=== PATIENT | male | born 1945 | race Caucasian/White ===

== ENCOUNTER 2019-05-09 14:18 | Inpatient (IN) | payer OTHER ==
[~2019-05-09] VITALS: Ht 177.8 cm; Wt 76.7 kg
--- NOTE | ~2019-05-09 | HC ---
[facility] [place] [address] CONSULTATION Name: PAULA ALLEN Room #: 355-P ADM IN M.R.#: [id number] Admission: 05/09/19 Attend Phys: Francis Hartman MD Discharge: Date of : 47 Report #: [id number] THIS REPORT FOR: //name// CC: Francis Hartman DATE OF SERVICE: 05/10/2019 REASON FOR CONSULTATION: Elevated creatinine. 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 The patient is not willing to engage into discussion of his medical care. He tells me that his brain is not working today. His daughter called EMS to be transported to the hospital because he had some increasing swelling and shortness of breath. He denies any urinary symptoms. The patient is known to have history of heart failure, remote history of COPD and hypertension. He denies noncompliance with medications. He carries a diagnosis of chronic kidney disease with a baseline creatinine of around 1.4. He is also known to have diabetes mellitus and is maintained on metformin. The patient's creatinine on presentation was at baseline at 1.5. His chest x-ray was consistent with pulmonary edema. The [facility]. He denies noncompliance with salt restriction. He is known to have a pacemaker in the past. From the renal perspective, he is not really able to tell me the name of his kidney doctor. PAST MEDICAL HISTORY: 1. Coronary artery disease. 2. Status post coronary artery bypass graft. 3. Remote history of left-sided nephrectomy. 4. Diabetes mellitus. 5. Hypertension. 6. Hyperlipidemia. 7. Heart paroxysmal AFib post-pacemaker. MEDICATIONS: 1. Currently, the patient is maintained on Atorvastatin. 2. Metoprolol. 3. Sotalol. 4. Aspirin. 5. Lasix. 6. Potassium. 7. Metformin. PAST MEDICAL HISTORY: Obtained from the medical chart due to the fact that the patient is not able to engage into discussion with his health issues. 1. Chronic obstructive pulmonary disease. [facility] [address] [place] [address] CONSULTATION Name: PAULA ALLEN Room #: 355-P [facility].#: [id number] Admission: 05/09/19 Attend Phys: Francis Hartman MD Discharge: Date of : 47 Report #: [id number] 2. Hypertension. 3. Diabetes mellitus. 4. Status post left nephrectomy. 5. Coronary artery disease. 6. Atrial fibrillation. 7. Status post CABG. 8. Status post AICD. SOCIAL HISTORY: Continues to smoke. No drug or alcohol abuse. ALLERGIES: OPIATE. REVIEW OF SYSTEMS: Unobtainable due to the patient's inability to engage into a discussion of his medical issues. FAMILY HISTORY: Unobtainable. PHYSICAL EXAMINATION: GENERAL: Alert, oriented, in no apparent distress. VITAL SIGNS: Blood pressure is 172/78. HEAD AND NECK: No jugular venous distention. CHEST: Decreased air entry bilaterally with crackles. CARDIOVASCULAR: Regular with no rub. ABDOMEN: Soft, nontender. EXTREMITIES: Lower extremities, +3 edema. LABORATORY DATA: Reviewed. Sodium is 134, potassium is 3.0, BUN is 21, creatinine is 1.5. ASSESSMENT, IMPRESSION AND PLAN: 1. Anasarca. 2. Hypokalemia. 3. Chronic kidney disease. 4. Hypertension. 5. Diabetes mellitus. 6. Coronary artery disease. 7. Continue with the current twice a day, diuretic regimen. 8. Salt restriction. 9. Continue to address his heart issues. 10. Cardiac echo. 11. Daily body weight. 12. Resume his home medications. [facility] [address] [place] [address] CONSULTATION Name: PAULA ALLEN Room #: 355-P [facility] IN ..#: [id number] Admission: 05/09/19 Attend Phys: Francis Hartman MD Discharge: Date of : 47 Report #: [id number] 13. Creatinine seems to be at baseline and it is expected to slightly worsen with diuresis. By: [id number] [id number] Conner Kim MD /nt
[2019-05-09 14:18] VITALS: BP 158/71
[2019-05-09] MEDS ORDERED: METFORMIN HCL500 M3 PO (14:40)
[2019-05-09] MEDS ORDERED: LIPITOR40 MG PO (14:40)
[2019-05-09] MEDS ORDERED: LOPRESSOR50 MG PO (14:40)
[2019-05-09] MEDS ORDERED: SOTALOL 120 MG120 M1 PO (14:41)
[2019-05-09] MEDS ORDERED: LASIX 40 MG TAB40 MG PO (14:41)
[2019-05-09] MEDS ORDERED: PROAIR HFA8.5 GM INH (14:42)
[2019-05-09] MEDS ORDERED: POTASSIUM99 M1 PO (14:42)
[2019-05-09] MEDS ORDERED: NORCO 10-325 T1 EACH PO (14:42)
[2019-05-09] MEDS ORDERED: ASA81BEC PO (14:42)
[2019-05-09 14:56] LABS: HEMATOCRIT 44.4 % (42.0-52.0); HEMOGLOBIN 14.8 gm/dL (14.0-18.0); MCHC 33.3 g/dL (28.0-37.0); PLATELET COUNT 166 thou/uL (150-400); RBC 4.77 mil/uL (4.50-6.00); RDW 14.8 % (10.5-14.5); WBC 6.4 thou/uL (4.0-11.0)
[2019-05-09 15:07] LABS: ANION GAP 6 mmol/L (7-16); BUN 21 mg/dL (7-18); CALCIUM 9.3 mg/dL (8.5-10.1); CHLORIDE 90 mmol/L (98-107); CO2 34 mmol/L (21-32); CREATININE 1.4 mg/dL (0.7-1.3); GLUCOSE 332 mg/dL (74-106); POTASSIUM 3.2 mmol/L (3.5-5.1); SODIUM 130 mmol/L (136-145)
[2019-05-09 15:07] LABS: URINE BILIRUBIN NEGATIVE (Negative); URINE BLOOD NEGATIVE (Negative); URINE CLARITY CLEAR; URINE COLOR YELLOW; URINE GLUCOSE-RANDOM* 3+ (Negative); URINE KETONES NEGATIVE (Negative); URINE LEUKOCYTES-REFLEX NEGATIVE (Negative); URINE NITRITE-REFLEX NEGATIVE (Negative); URINE PROTEIN (DIPSTICK) NEGATIVE (Negative)
[2019-05-09 15:17] LABS: ALBUMIN 3.4 g/dL (3.4-5.0); SGOT 28 U/L (15-37); SGPT 25 U/L (30-65); TOTAL BILIRUBIN 1.1 mg/dL (<0.1-1.0); TROPONIN-I <0.06 ng/mL (<0.06)
[2019-05-09 15:19] LABS: ABSOLUTE NEUTROPHILS 5.2 thou/uL (1.4-8.2); ANISOCYTOSIS 1+
[2019-05-09 16:25] VITALS: BP 173/85
[2019-05-09 16:49] VITALS: BP 172/94
[2019-05-09 17:03] VITALS: BP 166/111
[2019-05-09 19:20] VITALS: BP 135/90
[2019-05-09 23:48] VITALS: BP 133/87
[2019-05-10 00:06] LABS: GLYCOHEMOGLOBIN (HGB A1C) 9.1 % (4.8-5.6)
--- NOTE | 2019-05-10 02:14 | NUR ---
ASSUMED CARE OF PT AT 1900. A&Ox4, COOPERATIVE, OCCASIONALLY SEEMS TO BE A LITTLE CONFUSED. VS STABLE. C/O FEELING SOA. BREATHING TX REQUESTED AND PROVIDED. PT FELT BETTER AND WAS ABLE TO REST. UP X 1 TO BR AND USING URINAL D/T DIURETIC MEDS. PROGRESSING TOWARDS POC GOALS.
[2019-05-10 04:00] VITALS: BP 150/76
[2019-05-10 05:11] LABS: ABSOLUTE NEUTROPHILS 7.2 thou/uL (1.4-8.2); BASOPHILS 0.2 % (0.0-2.0); EOSINOPHILS 0.1 % (0.0-3.0); HEMATOCRIT 46.9 % (42.0-52.0); HEMOGLOBIN 15.4 gm/dL (14.0-18.0); LYMPHOCYTES 4.3 % (24.0-44.0); MCHC 32.8 g/dL (28.0-37.0); MCV 94.5 fL (80.0-100.0); MONOCYTES 1.9 % (1.0-8.0); PLATELET COUNT 187 thou/uL (150-400); POLYS 93.5 % (36.0-66.0); RBC 4.96 mil/uL (4.50-6.00); RDW 14.9 % (10.5-14.5); WBC 7.7 thou/uL (4.0-11.0)
[2019-05-10 05:14] LABS: CREATININE 1.5 mg/dL (0.7-1.3); MAGNESIUM 1.7 mg/dL (1.8-2.4)
--- NOTE | 2019-05-10 08:04 | EKG ---
[address] [address] ELECTROCARDIOGRAM REPORT Name: PAULA ALLEN Room #: 355-P ADM IN M.R.#: [id number] Admission: 05/09/19 Attend Phys: Francis Hartman MD Discharge: Date of : 47 Report #: [id number] THIS REPORT FOR: //name// [facility] ED Test Date: 2019-05-09 Test Time: 15:14:24 Pat Name: PAULA ALLEN Department: Room: 355 Gender: M Tennis Ball Cover Cementer: VALENTINA : 1945 Requested By: Kathy Farris Order Number: [id number] MD: Ayad Shin Measurements Intervals [place] Rate: 86 P: 74 [place]: 209 QRS: 167 QRSD: 174 T: 2 QT: 444 QTc: 531 Interpretive Statements Sinus rhythm Right bundle branch block Compared to ECG 11/08/1998 06:26:00 Intraventricular conduction delay now present nonspecific change in the ST and T-wave segments Electronically Signed On 05-10-2019 8:04:32 HOT IRON WORKER by Ayad Shin [email or web address] <ELECTRONICALLY SIGNED> By: Ayad Shin MD, [facility] 05/10/19 0804 1514 1514 Ayad Shin MD, [facility] /EPI
--- NOTE | 2019-05-10 08:05 | EKG ---
[address] [address] ELECTROCARDIOGRAM REPORT Name: PAULA ALLEN Room #: 355-P ADM IN M.R.#: [id number] Admission: 05/09/19 Attend Phys: Francis Hartman MD Discharge: Date of : 47 Report #: [id number] THIS REPORT FOR: //name// [facility] ED Test Date: 2019-05-09 Test Time: 15:41:48 Pat Name: PAULA ALLEN Department: Room: 355 Gender: M Vice President Quality Assurance: VALENTINA : 1945 Requested By: Kathy Farris Order Number: [id number] MD: Ayad Shin Measurements Intervals [place] Rate: 84 P: 70 [place]: 181 QRS: 168 QRSD: 175 T: 6 QT: 449 QTc: 531 Interpretive Statements Sinus rhythm Right bundle branch block Compared to ECG 11/08/1998 06:26:00 no significant change was found Electronically Signed On 05-10-2019 8:05:19 GAS APPLIANCE REPAIRER by Ayad Shin [email or web address] <ELECTRONICALLY SIGNED> By: Ayad Shin MD, [facility] 05/10/19 0805 1541 1541 Ayad Shin MD, [facility] /EPI
--- NOTE | 2019-05-10 08:15 | EKG ---
[address] [place] [address] ELECTROCARDIOGRAM REPORT Name: PAULA ALLEN Room #: 355-P ADM IN M.R.#: [id number] Admission: 05/09/19 Attend Phys: Francis Hartman MD Discharge: Date of : 47 Report #: [id number] THIS REPORT FOR: //name// [facility] Test Date: 2019-05-10 Test Time: 07:15:56 Pat Name: PAULA ALLEN Department: Room: 355 P Gender: M Natural Sciences Department Chair: Marisa ALLEN : 1945 Requested By: Home Benoit Order Number: [id number] MD: Ayad Shin Measurements Intervals [place] Rate: 93 P: 61 CT: 178 QRS: 177 QRSD: 175 T: 26 QT: 433 QTc: 539 Interpretive Statements Sinus rhythm RBBB and LPFB Premature ventricular complexes Compared to ECG 11/08/1998 06:26:00 Premature ventricular complexes now present Electronically Signed On 05-10-2019 8:15:02 CURING PRESS OPERATOR by Ayad Shin [email or web address] <ELECTRONICALLY SIGNED> By: Ayad Shin MD, [facility] 05/10/19814 4 4 Ayad Shin MD, [facility] /EPI
[2019-05-10 08:51] VITALS: BP 172/78
--- NOTE | 2019-05-10 09:39 | 2DMMODE ---
[facility] [place] [address] 2 D/M-MODE ECHOCARDIOGRAM Name: PAULA ALLEN Room #: 355-P [facility] IN M.R.#: [id number] Admission: 05/09/19 Attend Phys: Francis Hartman MD Discharge: Date of : 47 Report #: [id number] THIS REPORT FOR: //name// APPROVED REPORT Study performed: 05/10/2019 08:00:20 EXAM: Comprehensive 2D, Doppler, and color-flow Echocardiogram Patient Location: Echo lab Room #: 355 Status: routine BSA: 1.99 HR: 93 bpm BP: 150/76 mmHg Rhythm: Pacemaker Other Information Indications COPD Diabetes Dyspnea CAD Hypertension/HDD 2D Dimensions RVDd: 43.00 mm IVSd: 9.44 (7-11mm) LVOT Diam: 22.66 (18-24mm) LVDd: 56.19 mm PWd: 8.68 (7-11mm) Ascending Ao: 32.75 (22-36mm) LVDs: 49.52 (25-40mm) Aortic Root: 34.88 mm IVC: 22.00 mm Volumes Left Atrial Volume (Systole) Single Plane 4CH: 65.03 mL Single Plane 2CH: 55.12 mL LA ESV Index: 32.00 mL/m2 Aortic Valve AoV Peak Indio.: 0.96 m/s AO Peak Gr.: 3.71 mmHg LVOT Max P.25 mmHg LVOT Max V: 0.75 m/s KARLEY Vmax: 3.14 cm2 [facility] [address] [place] [address] 2 D/M-MODE ECHOCARDIOGRAM Name: PAULA ALLEN Room #: 355-P [facility]#: [id number] Admission: 05/09/19 Attend Phys: Francis Hartman MD Discharge: Date of : 47 Report #: [id number] Mitral Valve E/A Ratio: 1.4 MV Decel. Time: 147.19 ms MV E Max Indio.: 0.83 m/s MV A Indio.: 0.59 m/s MV PHT: 42.69 ms IVRT: 65.74 ms Pulmonary Valve PV Peak Indio.: 0.74 m/s PV Peak Gr.: 2.24 mmHg Pulmonary Vein P Vein S: 0.29 m/s P Vein A: 0.15 m/s P Vein D: 0.51 m/s P Vein A Dur.: 62.3 msec P Vein S/D Ratio: 0.57 Tricuspid Valve TR Peak Indio.: 3.67 m/s TR Peak Gr.: 53.80 mmHg PA Pressure: 64.00 mmHg Left Ventricle Left ventricle is at the upper limits of normal. Inferior, inferolateral, and lateral wall hypokinesis There is normal left ventricular wall thickness. Left ventricular systolic function is moderate to severely decreased. LVEF is 35-40%. Moderate diastolic dysfunction is present (pseudonormal filling). Right Ventricle The right ventricle is normal size. The right ventricular systolic function is normal. Device lead is present in the right ventricle. Atria Left atrium is at the upper limits of normal. Right atrium is dilated. Device lead is present in the right atrium. Aortic Valve Aortic valve is mildly calcified. No aortic regurgitation is present. There is no aortic valvular stenosis. Mitral Valve The mitral valve is normal in structure. Mild-moderate mitral regurgitation. No evidence of mitral valve stenosis. Tricuspid Valve The tricuspid valve is normal in structure. There is mild tricuspid [facility] [address] [place] [address] 2 D/M-MODE ECHOCARDIOGRAM Name: PAULA ALLEN Room #: 355[facility] IN ..#: [id number] Admission: 05/09/19 Attend Phys: Francis Hartman MD Discharge: Date of : 47 Report #: [id number] regurgitation. Estimated PAP 60 mmHg. There is moderate pulmonary hypertension. Pulmonic Valve The pulmonary valve is normal in structure. Trace pulmonic regurgitation. Great Vessels The aortic root is normal in size. IVC is dilated and collapses >50% with inspiration. Pericardium There is no pericardial effusion. <Conclusion> Left ventricular systolic function is moderate to severely decreased. Inferior, inferolateral, and lateral wall hypokinesis LVEF is 35-40%. Moderate diastolic dysfunction Aortic valve is mildly calcified. No aortic regurgitation or stenosis. The mitral valve is normal in structure. Mild-moderate mitral regurgitation. There is mild tricuspid regurgitation. Estimated pulmonary artery pressure of 60 mmHg. There is no pericardial effusion. <ELECTRONICALLY SIGNED> By: Ayad Shin MD, FACC 05/10/19938 8 8 Ayad Shin MD, FACC /INF
[2019-05-10 10:27] LABS: CALCIUM 9.4 mg/dL (8.5-10.1); CREATININE 1.6 mg/dL (0.7-1.3); POTASSIUM 3.3 mmol/L (3.5-5.1)
[2019-05-10 11:40] VITALS: BP 109/62
[2019-05-10 12:45] LABS: BE(vivo) 8.8 mmol/L (-2 to +3); HCO3 35.9 mmol/L (22.0-26.0); PCO2 58.1 mmHg (35.0-45.0); PO2 143.1 mmHg (80.0-100.0); pH 7.409 (7.360-7.450); sO2 98.8 % (92.0-98.0)
--- NOTE | 2019-05-10 14:41 | NUR ---
INITIAL ASSESSMENT: Received high risk referral. SW reviewed chart and spoke with nursing and attending physician. Pt was admitted from home due to exacerbation of CHF. Pt is currently on IV lasix. Therapy has evaluated pt and recommends home with HH. SW met with pt and son at bedside. Introduced role of SW. Pt is alert/orientated x 4. Pt reports he lives at home with his dtr, Radha. There is one step to enter the home. No steps inside. Prior to admission, pt was using a walker for ambulation. No hx of HH services or post-acute placement. Pt is agreeable with HH services. Options provided. No preference voiced. Pt's PCP is Dr. Francis Renteria. order planner to fax referral to [facility]. SW is following to assist as needed with discharge planning.
--- NOTE | 2019-05-10 15:07 | NUR ---
DISCHARGE PLANNING. HOME HEALTH RECOMMENDED AT DISCHARGE. ANTICIPATED DISCHARGE PLANNED 1-2 DAYS. PATIENT REFERRAL FAXED TO [facility] PER REQUEST. CALL PLACED TO [facility] TO NOTIFY. AWAITING RESPONSE. FOLLOWING.
[2019-05-10 16:04] VITALS: BP 116/62
--- NOTE | 2019-05-10 17:44 | NUR ---
ASSUMED PATIENT CARE AT 0700. A/0 X4. LETHARGIC. IRRATABLE. 3+ EDEMA BLE. UP WITH ASSITED. SLOWLY TOWARDS POC GOALS.
[2019-05-10 19:18] VITALS: BP 141/58
[2019-05-11 05:03] VITALS: BP 160/89
--- NOTE | 2019-05-11 05:04 | NUR ---
PT WAS IN BETTER SPIRITS AND NOT IRRITABLE. PT MAINTAINED GOOD URINE OUTPUT OVER THE SHIFT. WATCHING LABS TO ENSURE ELECTROLYTE PROTOCOL IS MAINTAINED. HOURLY ROUNDING.
[2019-05-11 06:03] LABS: HEMATOCRIT 45.4 % (42.0-52.0); HEMOGLOBIN 14.8 gm/dL (14.0-18.0); MCH 30.8 pg (26.0-34.0); MCHC 32.6 g/dL (28.0-37.0); MCV 94.7 fL (80.0-100.0); RBC 4.8 mil/uL (4.50-6.00); RDW 15.1 % (10.5-14.5); WBC 10.9 thou/uL (4.0-11.0)
[2019-05-11 06:16] LABS: CALCIUM 9.3 mg/dL (8.5-10.1); CREATININE 1.2 mg/dL (0.7-1.3); POTASSIUM 3.2 mmol/L (3.5-5.1)
[2019-05-11 07:57] VITALS: BP 144/73
--- NOTE | 2019-05-11 08:44 | HC ---
[facility] [place] [address] [place] [address] CONSULTATION Name: PAULA ALLEN Room #: 355-P ADM IN M.R.#: [id number] Admission: 05/09/19 Attend Phys: Francis Hartman MD Discharge: Date of : 47 Report #: [id number] THIS REPORT FOR: //name// CC: Francis Hartman DATE OF SERVICE: 05/10/2019 CONSULTING PHYSICIAN: Dr. Hartman. REASON FOR CONSULTATION: Uncontrolled type 2 diabetes mellitus. HISTORY OF PRESENT ILLNESS: This is a 73-year-old male patient whose medical background is significant for multiple medical issues including type 2 diabetes mellitus, hypertension, hyperlipidemia, coronary artery disease, and COPD. The patient presented to our Emergency Department yesterday with complaints of progressive shortness of breath and cough as well as generalized edema including his lower extremities. The patient was admitted for further care and monitoring. The patient has had type 2 diabetes mellitus for many years and notes that he is maintained on metformin monotherapy at a dose of 500 mg b.i.d. He acknowledges that he does not check his blood sugar values at all at home. The patient does not have a known diabetic retinopathy, but he does have a background that is noted for CAD and CHF. He does have intermittent issues with diabetic neuropathy. His medical background is also noted for hyperlipidemia that is treated with atorvastatin as well as hypertension that is treated with metoprolol, sotalol. REVIEW OF SYSTEMS: CONSTITUTIONAL: Fatigue, tiredness, but not weight changes or fever. HEENT: Negative for sore throat, sinus pain, ear drainage. PULMONARY: Shortness of breath and cough, but no hemoptysis. CARDIAC: Dyspnea on exertion, abdominal distention, lower extremity edema. Occasional palpitations, but not syncope or presyncope. GASTROINTESTINAL: Abdominal distention, abdominal discomfort, nausea, but no vomiting. No major changes in bowel movement frequency. NEUROLOGIC: Noted for peripheral numbness, tingling, occasional lightheadedness and dizziness, but not loss of consciousness or seizure activity. SKIN: Stasis dermatitis over both lower extremities. No major ulceration. Otherwise, review of systems is noncontributory other than those mentioned in HPI. PAST MEDICAL HISTORY: 1. Type 2 diabetes mellitus. [facility] [address] [place] [address] CONSULTATION Name: PAULA ALLEN Room #: 355-P [facility] IN .R.#: [id number] Admission: 05/09/19 Attend Phys: Francis Hartman MD Discharge: Date of : 47 Report #: [id number] 2. Hypertension. 3. Hyperlipidemia. 4. Congestive heart failure. 5. Coronary artery disease, status post stent x 3, CABG x 3. 6. COPD. 7. History of renal cell cancer, status post nephrectomy. 8. Cataracts. OUTPATIENT MEDICATIONS: Include metformin 500 mg b.i.d., atorvastatin 40 mg daily, metoprolol 50 mg daily, sotalol 60 mg daily, Lasix 40 mg daily, KCl 20 mEq daily, albuterol p.r.n., aspirin 81 mg daily. ALLERGIES: Allergic to CODEINE. FAMILY HISTORY: Noncontributory. SOCIAL HISTORY: The patient is a smoker of about half a pack per day. Denies use of alcohol. PHYSICAL EXAMINATION: GENERAL: male patient who is not in apparent pain or distress, sitting at the side of his bed, appears a bit tired, fatigued, but not in pain or distress. VITAL SIGNS: Blood pressure is 172/78 mmHg, heart rate is 101 beats per minute, respirations 16 per minute, temperature 37 degrees. CONSTITUTIONAL: The patient appears tired, fatigued, but not in apparent pain or distress. HEENT: Anicteric sclerae. Intact extraocular motions. NECK: Supple, without JVD, carotid bruits or lymphadenopathy. I do not appreciate thyromegaly. CHEST: Noted for limited air entry bilaterally with scattered rales, rhonchi as well as bibasilar crackles. HEART: Regular rate and rhythm without murmurs or gallops. ABDOMEN: Distended, but soft, nontender, no guarding. Active bowel sounds. EXTREMITIES: Lower extremity exam, pitting ankle edema bilaterally. Deep stasis dermatitis changes involving both lower extremities. NEUROLOGIC: Awake, alert and oriented to time, place and person. The remainder of his examination is nonfocal other than for sensory deficits over both feet. PSYCHIATRIC: Flat mood and affect. Nonetheless, interactive and answered all my questions appropriately. LABORATORY RESULTS: When he arrived, his initial blood sugar was 356 mg/dL. The subsequent blood glucose was 180 mg/dL. Sodium 133, potassium 3.3, chloride 91, CO2 of 38, anion gap 4, BUN 23, creatinine 1.6, AST 28, total bilirubin 1.1, calcium 9.4, magnesium 1.7, alkaline phosphatase 89, ALT 25, total protein 7.0, albumin 3.4, EGFR 43. BNP 9083. Troponin is negative. White blood count 7.7, [facility] [address] [place] [address] CONSULTATION Name: PAULA ALLEN Room #: 355-P [facility] IN Jaime.#: [id number] Admission: 05/09/19 Attend Phys: Francis Hartman MD Discharge: Date of : 47 Report #: [id number] hemoglobin 15.4, hematocrit 46.9, platelets 187. TSH 1.279. Hemoglobin A1c 9.1%. ASSESSMENT AND PLAN: 1. Type 2 diabetes mellitus. The patient is uncontrolled, both as per the recorded blood glucose values as well as his hemoglobin A1c documented during this hospital stay. He lacks any blood glucose data at home. The patient and I had a lengthy discussion about the necessity of achieving and maintaining adequate glycemic control so as to avoid short-term and long-term diabetic complications, which he seemed to understand well. Since admission, the patient has been placed on a Humalog insulin supplemental scale support. Additionally, I will add Tradjenta 5 mg daily to his regimen and continue to monitor his blood glucose closely. Short term and during this hospital stay, I will keep the patient off metformin, pending further clinical stability. Despite having what appears to be stage 3 chronic kidney disease, the patient should be able to tolerate metformin 500 mg b.i.d. dosage, which will be resumed again when he is clinically stable. I will continue to monitor his blood glucose values before meals and at bedtime and adjust his regimen accordingly. 2. Hypertension. The patient's level of blood pressure control is marginal on the current regimen, I will defer further adjustments of this aspect to the Hospital Medicine team. 3. Hyperlipidemia. The patient is currently on atorvastatin therapy and tolerates that well, continue the same. 4. Hyponatremia. The patient has been hyponatremic on arrival. I will check a TSH level to ensure his stability. I appreciate this consultation by Dr. Hartman. <ELECTRONICALLY SIGNED> By: Bar Dowling MD 05/11/19 0844 1128 [id number] Bar Dowling MD /nt
[2019-05-11 11:38] VITALS: BP 142/58
[2019-05-11 13:05] LABS: MAGNESIUM 2.2 mg/dL (1.8-2.4)
[2019-05-11 13:07] LABS: POTASSIUM 4.3 mmol/L (3.5-5.1)
--- NOTE | 2019-05-11 14:37 | NUR ---
SW reviewed chart and spoke with nursing and attending physician. Pt remains on IV lasix. Discharge home is anticipated home in 1-2 days. [facility] is able to accept pt on service when discharged. PRATIK is following to assist as needed with discharge planning.
[2019-05-11 15:46] VITALS: BP 88/65
--- NOTE | 2019-05-11 16:12 | NUR ---
PT is A&OX3, but pt is forgetful, pt is continuing o2 2L/min/nc, pt's VS and BS are stable at this time, pt is very weak, and pt is high fall risk, pt 's low potassium has replacement today, recheck is normal.
--- NOTE | 2019-05-11 16:28 | NUR ---
pt's pacemaker and defibrillator device have checked by device company, pt's setting is HR < 40 , pacemaker will start working, and HR > 180, defibrillator will working, RN will report to next shift about this setting.
[2019-05-11 19:53] VITALS: BP 133/54
[2019-05-12 04:25] VITALS: BP 157/81
--- NOTE | 2019-05-12 04:27 | NUR ---
ASSUMED PT CARE AROUND 1900. A&OX4, FORGETFUL AT TIMES. DENIES ANY PAIN. PT STATES HIS BREATHING FEELS IMPROVED. PT SLEPT MOST OF THE NIGHT. RESP EVEN AND UNLABORED. BLE SLIGHTLY EDEMATOUS. BLE ELEVATED ON PILLOW. VOIDING PER URINAL. PT SLEPT MOST OF THE NIGHT. FALL PRECAUTIONS IN PLACE. PROGRESSING TOWARD POC GOALS.
[2019-05-12 04:54] LABS: ALBUMIN 3.4 g/dL (3.4-5.0); CALCIUM 9.1 mg/dL (8.5-10.1); CREATININE 1.4 mg/dL (0.7-1.3); PHOSPHORUS 4.1 mg/dL (2.5-4.9); POTASSIUM 3.7 mmol/L (3.5-5.1)
[2019-05-12 11:53] VITALS: BP 128/66
[2019-05-12 15:27] VITALS: BP 128/66
--- NOTE | 2019-05-12 15:30 | NUR ---
PRATIK reviewed chart and spoke with nursing and attending physician. Pt remains on lasix gtt. Pt is progressing towards goals for discharge. Discharge home is anticipated over the weekend with HH services. PRATIK met with pt and dtr at bedside to discuss discharge plan. Both pt and dtr are aware and agreeable with discharge plan. Pt was not on O2 prior to admission. Pt's family will be able to provide transportation home. Contact info for [employer] placed in pt's discharge summary. Final discharge orders/summary will need to faxed when available. PRATIK is following to assist as needed. [employer] [facility]--
[2019-05-12 16:03] VITALS: BP 132/78
[2019-05-12 17:15] VITALS: BP 139/81
--- NOTE | 2019-05-12 17:21 | NUR ---
pt is A&OX3, but pt is forgetful, pt's BLE edema has inproved, dr has changed IV lasix to po.pt's vs and BS are stable, pt has transfered to 4 N at 1715pm.
[2019-05-13 04:20] LABS: HEMATOCRIT 46.4 % (42.0-52.0); HEMOGLOBIN 15.1 gm/dL (14.0-18.0); MCH 30.8 pg (26.0-34.0); MCHC 32.5 g/dL (28.0-37.0); MCV 94.8 fL (80.0-100.0); RBC 4.9 mil/uL (4.50-6.00); RDW 15.4 % (10.5-14.5); WBC 8.1 thou/uL (4.0-11.0)
[2019-05-13 04:41] LABS: CALCIUM 9.1 mg/dL (8.5-10.1); CREATININE 1.2 mg/dL (0.7-1.3); POTASSIUM 3.4 mmol/L (3.5-5.1)
--- NOTE | 2019-05-13 05:43 | NUR ---
PATIENT ALERT AND ORIENTED X4. UP ADLIB IN ROOM. BECAME SOA WITH EXERTION AND 02NC 2L PLACED. FORGETFUL ON PUTTING OXYGEN BACK ON AFTER GOING TO THE BATHROOM. DENIES PAIN. BS MONITORED PER ORDER. SNACK GIVEN. WILL MONITOR.
[2019-05-13 07:28] VITALS: BP 154/81
--- NOTE | 2019-05-13 10:45 | NUR ---
Received awake on bed. Due medications given as prescribed, able to swallow meds w/o difficulty. A+Ox4. With O2 at 2lpm via nasal cannula- pt does not use O2 at home. On blood sugar monitoring, taken and recorded accordingly, Sliding scale insulin given as prescribed. With pacemaker in place. On heart healthy diet- tolerating well; no nausea, no vomiting and no abdominal pain noted. With Edema at LE- kept elevated. With SL at R hand- intact and flushing well. Standby assist going to the bathroom. For possible discharge today- a/w doctor's rounds. Pt assisted in ADLs. Pt seen by Dr Hartman this am. Weaned off on oxygen the to recheck after 30 minutes then will decide if pt is to be discharged. O2 sats of 88-90% 30 mins after weaning off on O2 relayed to Dr Hartman- will work on pt's discharge.
[2019-05-13] MEDS ORDERED: NORVASC5 MG PO (11:05)
[2019-05-13] MEDS ORDERED: COZAAR 25 MG TA25 M1 PO (11:06)
[2019-05-13] MEDS ORDERED: TORSEMIDE20 MG PO (11:07)
[2019-05-13] MEDS ORDERED: TRADJENTA5 MG PO (11:07)
[2019-05-13] MEDS ORDERED: LANTUS100 UNIT/M SUBQ (11:08)
[2019-05-13 15:40] VITALS: BP 147/76
--- NOTE | 2019-05-15 10:42 | NUR ---
PRATIK this morning notified that on-call SW was called on Wednesday, 05/13, regarding HH services. Pt's RN was told that pt would not be seen until , 05/18. Confirmed this morning with [facility] that pt is on the schedule to be seen today by GERRY Lord. PRATIK updated Director of Case Mgmt. No additional SW needs identified at this time, but is available to assist should needs arise.
== END 2019-05-13 16:50 | disposition home health service (06) | DRG 682 ==
LOC: ER 14:18 → EROBS 16:22 → 3W 16:22 → ENTRNSPT 05-12 16:54 → 3W 05-12 17:01 → 4N 05-12 17:10
PROVIDERS: Hospitalist; Nurse Practitioner; Nurse Practitioner Adult Health; Nurse Practitioner Family; ADMIT Hospitalist
DX: N17.9 Acute kidney failure, unspecified (principal); I50.23 Acute on chronic systolic (congestive) heart failure; J96.20 Acute and chronic respiratory failure, unspecified whether with hypoxia or hypercapnia; E87.1 Hypo-osmolality and hyponatremia; I13.0 Hypertensive heart and chronic kidney disease with heart failure and stage 1 through stage 4 chronic kidney disease, or unspecified chronic kidney disease; E87.6 Hypokalemia; G89.29 Other chronic pain; M25.559 Pain in unspecified hip; J44.9 Chronic obstructive pulmonary disease, unspecified; E78.5 Hyperlipidemia, unspecified; I25.10 Atherosclerotic heart disease of native coronary artery without angina pectoris; Z96.641 Presence of right artificial hip joint; F17.210 Nicotine dependence, cigarettes, uncomplicated; E11.22 Type 2 diabetes mellitus with diabetic chronic kidney disease; N18.9 Chronic kidney disease, unspecified; R26.9 Unspecified abnormalities of gait and mobility; I48.0 Paroxysmal atrial fibrillation; R60.1 Generalized edema; E55.9 Vitamin D deficiency, unspecified; I34.0 Nonrheumatic mitral (valve) insufficiency; I27.20 Pulmonary hypertension, unspecified; I48.91 Unspecified atrial fibrillation; Z95.1 Presence of aortocoronary bypass graft; Z90.5 Acquired absence of kidney; Z86.73 Personal history of transient ischemic attack (TIA), and cerebral infarction without residual deficits; Z79.82 Long term (current) use of aspirin; Z79.84 Long term (current) use of oral hypoglycemic drugs; Z79.891 Long term (current) use of opiate analgesic; Z79.899 Other long term (current) drug therapy; Z88.5 Allergy status to narcotic agent; Z95.5 Presence of coronary angioplasty implant and graft; Z95.0 Presence of cardiac pacemaker; Z79.01 Long term (current) use of anticoagulants
CPT/HCPCS: 10790; 10879